=== PATIENT | male | born 1975 | race African-American/Black ===

== ENCOUNTER 2019-12-25 09:35 | Inpatient (IN) | payer OTHER ==
--- NOTE | 2019-12-25 09:47 | BHS.RME ---
Substance Use & Tx History - Substance Use History Alcohol Substance amount: one liter of Vodka Frequency of use: Daily Substance route: Oral Date of Last Use: 12/25/19 (First use age 13y. No seizures, Has had a blackout about 8 mos ago. 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) Cocaine- Powder Substance amount: one gram Frequency of use: Daily Substance route: Inhalation (ex: sniffing or snorting) Date of Last Use: 12/21/19 (First use age 15 y) Physical/Psych/Mental Status - Behavior General Behavior: Decreased activity Eye Contact: Decreased - Cooperativeness Cooperativeness: Cooperative - Thinking Thought Processes: Tight Thought content: Future oriented - Physical Health Problems Is patient presently having any pain?: No Does patient presently have any injuries (include location): No Does patient currently have a fever: No CIWA Nausea/Vomitin Muscle Tremors: 3 Anxiety: 3 Agitation: 1-Slight > Activity Paroxysmal Sweats: No Perspiration Orientation: 2-Disoriented Date<2 days Tacttile Disturbances: 0-None Auditory Disturbances: 0-None Visual Disturbances: 2-Mild Sensitivity Headache: 0-None Present CIWA-Ar Total Score: 14
[2019-12-25 10:27] VITALS: BMI 31.3
[2019-12-25] MEDS ORDERED: chlordiazePOXIDE HCL 25 MG CAPSULE PO PRN (10:50)
[2019-12-25] MEDS ORDERED: ACETAMINOPHEN 325 MG TABLET (FP) PO PRN ×2 (10:50)
[2019-12-25] MEDS ORDERED: MAGNESIUM HYDROX 2400MG/30ML ORAL SUSPENSION 30 ML CUP PO PRN (10:50)
[2019-12-25] MEDS ORDERED: BISMUTH SUBSALICYLATE 524 MG/30 ML UD PO PRN (10:50)
[2019-12-25] MEDS ORDERED: ONDANSETRON *ODT* 4 MG TABLET SL PRN (10:50)
[2019-12-25] MEDS ORDERED: NICOTINE POLACRILEX 2 MG GUM BUC PRN (10:50)
[2019-12-25] MEDS ORDERED: MAGNESIUM CITRATE 300 ML BOTTLE PO PRN (10:50)
[2019-12-25] MEDS ORDERED: MAG HYDROX/AL HYDROX/SIMETH 30 ML UNIT-DOSE CUP PO PRN (10:50)
[2019-12-25] MEDS ORDERED: IBUPROFEN 400 MG TABLET (FP) PO PRN (10:50)
[2019-12-25] MEDS ORDERED: MENTHOL/PHENOL 1 EACH UD MM PRN (10:50)
[2019-12-25] MEDS ORDERED: METHOCARBAMOL 500 MG TABLET PO PRN (10:50)
--- NOTE | 2019-12-25 10:50 | HP ---
CIWA Score Nausea/Vomitin Muscle Tremors: 3 Anxiety: 3 Agitation: 1-Slight > Activity Paroxysmal Sweats: No Perspiration Orientation: 2-Disoriented Date<2 days Tacttile Disturbances: 0-None Auditory Disturbances: 0-None Visual Disturbances: 2-Mild Sensitivity Headache: 0-None Present CIWA-Ar Total Score: 14 - Admission Criteria OASAS Guidelines: Admission for Medically Managed Detox: Requires at least one of the followin. CIWA greater than 12 2. Seizures within the past 24 hours 3. Delirium tremens within the past 24 hours 4. Hallucinations within the past 24 hours 5. Acute intervention needed for co occurring medical disorder 6. Acute intervention needed for co occurring psychiatric disorder 7. Severe withdrawal that cannot be handled at a lower level of care (continued vomiting, continued diarrhea, abnormal vital signs) requiring intravenous medication and/or fluids 8. Admitting History and Physical - Admission Chief Complaint: Mr. Bey presents to [facility] requesting detox from alcohol. History of Present Illness: Mr. Bey presents to [facility] requesting detox from alcohol. This is his first admission to [facility]. PMH/PSH/Psych/Legal: none SoC: lives with aunt Substance Use History Alcohol Substance amount: one liter of Vodka Frequency of use: Daily Substance route: Oral Date of Last Use: 12/25/19 (First use age 13y. No seizures, Has had a blackout about 8 mos ago. 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) Cocaine- Powder Substance amount: one gram Frequency of use: Daily Substance route: Inhalation (ex: sniffing or snorting) Date of Last Use: 12/21/19 (First use age 15 y) Cannabis: 2 days ago, uses 3 days per month, first use age 14y History Source: Patient Limitations to Obtaining History: No Limitations - Smoking History Smoking history: Current every day smoker Have you smoked in the past 12 months: Yes Aproximately how many cigarettes per day: 20 Admission [facility] Allergies/Adverse Reactions: Allergies Allergy/AdvReac Type Severity Reaction Status Date / Time No Known Allergies Allergy Verified 12/25/19 10:29 Exam Limitations: No Limitations - Ebola screening Have you traveled outside of the country in the last 21 days: No Have you been sick,other than usual withdrawal symptoms: No Do you have a fever: No - Review of Systems Constitutional: Unintentional Wgt. Loss (10 lb in 2 weeks) EENT: reports: No Symptoms Reported Respiratory: reports: No Symptoms reported Cardiac: reports: No Symptoms Reported GI: reports: Nausea : reports: No Symptoms Reported Musculoskeletal: reports: No Symptoms Reported Integumentary: reports: No Symptoms Reported Neuro: reports: No Symptoms reported Endocrine: reports: No Symptoms Reported Hematology: reports: No Symptoms Reported Psychiatric: reports: Anxious Patient History - Patient Medical History Hx Asthma: No Hx Chronic Obstructive Pulmonary Disease (COPD): No Hx Cardiac Disorders: No Hx Hypertension: No Hx Seizures: No Hx Diabetes: No Hx Gastrointestinal Disorders: No Hx Genitourinary Disorders: No Hx Sexually Transmitted Disorders: No Hx Renal Disease (ESRD): No Hx Depression: No Hx Suicide Attempt: No Hx Schizophrenia: No - Patient Surgical History Past Surgical History: No Hx Neurologic Surgery: No Hx Cataract Extraction: No Hx Cardiac Surgery: No Hx Lung Surgery: No Hx Breast Surgery: No Hx Breast Biopsy: No Hx Abdominal Surgery: No Hx Appendectomy: No Hx Cholecystectomy: No Hx Genitourinary Surgery: No Hx Section: No Hx Orthopedic Surgery: No Anesthesia Reaction: No - PPD History Previous Implant?: No Documented Results: Negative w/o proof - Smoking Cessation Smoking history: Current every day smoker Have you smoked in the past 12 months: Yes Aproximately how many cigarettes per day: 20 Hx Chewing Tobacco Use: No Initiated information on smoking cessation: Yes 'Breaking Loose' booklet given: 12/25/19 - Substances abused Alcohol Substance route: Oral Frequency: Daily Amount used: 1 pint vodka Age of first use: 14 Date of last use: 12/25/19 Marijuana/Hashish Substance route: Smoking Frequency: 1-3 times last 30 days Amount used: Free Age of first use: 14 Date of last use: 12/21/19 Cocaine Substance route: Inhalation Frequency: 3-6 times per week Amount used: $100 Age of first use: 20 Date of last use: 12/20/19 Admission Physical Exam BHS - Vital Signs Vital Signs: Vital Signs - 24 hr 12/25/19 10:21 Temperature 97.7 F Pulse Rate 68 Respiratory 18 Rate Blood Pressure 106/63 - Physical General Appearance: Yes: No Apparent Distress, Nourished, Appropriately Dressed HEENTM: Yes: EOMI, Hearing grossly Normal, Normocephalic, Normal Voice Respiratory: Yes: Lungs Clear, Normal Breath Sounds, No Accessory Muscle Use Neck: Yes: Within Normal Limits, Supple Breast: Yes: Breast Exam Deferred Cardiology: Yes: Regular Rhythm, Regular Rate Abdominal: Yes: Non Tender, Soft, Decreased BS, Protuberent Genitourinary: Yes: Other (deferred) Back: Yes: Normal Inspection Musculoskeletal: Yes: Gait Steady Neurological: Yes: Alert, Normal Response Integumentary: Yes: Normal Color, Dry, Warm - Diagnostic (1) Alcohol dependence with withdrawal, uncomplicated Current Visit: Yes Status: Acute (2) Cocaine abuse Current Visit: Yes Status: Acute (3) Nicotine dependence Current Visit: Yes Status: Acute Qualifiers: Nicotine product type: cigarettes Substance use status: uncomplicated Qualified Code(s): F17.210 - Nicotine dependence, cigarettes, uncomplicated Cleared for Admission S - Detox or Rehab [facility] Level of Care: Medically Managed Detox Regimen/Protocol: Librium Breathalyzer - Breathalyzer Breathalyzer: 0 Urine Drug Screen - Test Device Lot number: [id number] Expiration date: 02/01/21 - Control Is test valid?: Yes - Results Drug screen NEGATIVE: No Urine drug screen results: THC-Marijuana Inpatient Rehab Admission - Rehab Decision to Admit Inpatient rehab admission?: No
[2019-12-25] MEDS: NICOTINE 21 MG/24 HOURS TOPICAL PATCH TD SCH (11:19)
--- NOTE | 2019-12-25 12:15 | EKG ---
Test Reason : Blood Pressure : / mmHG Vent. Rate : 058 BPM Atrial Rate : 058 BPM P-R Int : 146 ms QRS Dur : 094 ms QT Int : 414 ms P-R-T Axes : 083 068 046 degrees QTc Int : 406 ms SINUS BRADYCARDIA OTHERWISE NORMAL ECG NO PREVIOUS ECGS AVAILABLE Confirmed by SHYAM DEVLIN MD ([id number]) on 12/25/2019 12:14:30 PM Referred By: Confirmed By:SHYAM DEVLIN MD
[2019-12-25 14:24] LABS: HEMOGLOBIN 14.1 GM/dL (11.7-16.9); MCH 30.8 pg (25.7-33.7); MCHC 34.3 g/dl (32.0-35.9); MEAN CELL VOLUME 89.7 fl (80-96); MEAN PLT VOLUME 7.8 fl (7.5-11.1); PLATELET COUNT 272 K/MM3 (134-434); RBC 4.57 M/mm3 (4.00-5.60); WHITE BLOOD COUNT 6.7 K/mm3 (4.0-10.0)
[2019-12-25 14:35] LABS: ALBUMIN 3.8 g/dl (3.4-5.0); BILIRUBIN,TOTAL 0.6 mg/dL (0.2-1); BLOOD UREA NITROGEN 12.9 mg/dL (7-18); TOT PROT 6.7 g/dl (6.4-8.2)
[2019-12-25] MEDS: hydrOXYzine PAMOATE 25 MG CAPSULE (FP) PO SCH ×3 (14:55→23:16)
[2019-12-25] MEDS: chlordiazePOXIDE HCL 25 MG CAPSULE PO SCH ×2 (17:44→23:16)
[2019-12-25] MEDS: THIAMINE HCL 100 MG TABLET (FP) PO SCH (23:16)
[2019-12-25] MEDS: MELATONIN 5 MG TABLETS PO SCH (23:16)
[2019-12-26] MEDS: hydrOXYzine PAMOATE 25 MG CAPSULE (FP) PO SCH ×5 (06:18→22:35)
[2019-12-26] MEDS: chlordiazePOXIDE HCL 25 MG CAPSULE PO SCH ×4 (06:18→22:32)
--- NOTE | 2019-12-26 10:15 | PN ---
S CIWA - CIWA Score Nausea/Vomitin-No Nausea/No Vomiting Muscle Tremors: None Anxiety: 0-No Anxiety, at Ease Agitation: 0-Normal Activity Paroxysmal Sweats: 1-Minimal Palms Moist Orientation: 0-Oriented Tacttile Disturbances: 0-None Auditory Disturbances: 2-Mild Harshness/Frighten Visual Disturbances: 2-Mild Sensitivity Headache: 0-None Present CIWA-Ar Total Score: 5 BHS Progress Note (SOAP) Subjective: Complains of slight sweats, noise sensitivity, light sensitivity, low back pain Objective: 12/26/19 10:13 see below Assessment: 12/26/19 10:12 Mr. Bey presents to [facility] requesting detox from alcohol. This is his first admission to [facility]. PMH/PSH/Psych/Legal: none SoC: lives with aunt Substance Use History Alcohol Substance amount: one liter of Vodka Frequency of use: Daily Substance route: Oral Date of Last Use: 12/25/19 (First use age 13y. No seizures, Has had a blackout about 8 mos ago. Admits to eye fish protector) Cocaine- Powder Substance amount: one gram Frequency of use: Daily Substance route: Inhalation (ex: sniffing or snorting) Date of Last Use: 12/21/19 (First use age 15 y) Cannabis: 2 days ago, uses 3 days per month, first use age 14y PE Gnl: WDWN, in no distress MS: nl mentation Motor: moves limbs well Coordination: nl Laboratory Tests 12/25/19 12/25/19 12/25/19 10:35 10:35 10:35 WBC 6.7 RBC 4.57 Hgb 14.1 Hct 41.0 MCV 89.7 MCH 30.8 MCHC 34.3 RDW 14.0 Plt Count 272 MPV 7.8 Sodium 142 Potassium 4.0 Chloride 109 H Carbon Dioxide 26 Anion Gap 7 L BUN 12.9 Creatinine 1.0 Est GFR (CKD-EPI)AfAm 105.62 Est GFR (CKD-EPI)NonAf 91.13 Random Glucose 93 Calcium 9.0 Total Bilirubin 0.6 AST 29 ALT 34 Alkaline Phosphatase 64 Total Protein 6.7 Albumin 3.8 Syphilis Serology Non-reactive Vital Signs - 24 hr 07/23/20 07/23/20 07/23/20 10:21 11:15 13:01 Temperature 97.7 F 97.7 F 98.1 F Pulse Rate 68 68 56 L Respiratory 18 18 20 Rate Blood Pressure 106/63 106/63 104/61 O2 Sat by Pulse 100 Oximetry (%) 12/25/19 12/25/19 12/26/19 16:33 21:30 05:37 Temperature 97.3 F L 96.8 F L 97.8 F Pulse Rate 69 54 L 72 Respiratory 18 18 18 Rate Blood Pressure 109/68 114/68 99/57 L O2 Sat by Pulse 100 100 Oximetry (%) 12/26/19 08:36 Temperature 98.1 F Pulse Rate 56 L Respiratory 18 Rate Blood Pressure 110/67 O2 Sat by Pulse 100 Oximetry (%) Home Medication List Medication Instructions Recorded Confirmed Type NK [No Known Home Medication] 12/25/19 12/25/19 History Active Medications Generic Name Dose Route Start Last Admin Trade Name Freq PRN Reason Stop Dose Admin Acetaminophen 650 mg 12/25/19 10:50 Tylenol - PO Q6H PRN PAIN LEVEL 4 - 6 Acetaminophen 650 mg 12/25/19 10:50 Tylenol - PO Q6H PRN FEVER Al Hydroxide/Mg Hydroxide 30 ml 12/25/19 10:50 Mylanta Oral Suspension - PO Q6H PRN DYSPEPSIA Bismuth Subsalicylate 524 mg 12/25/19 10:50 Pepto-Bismol - PO Q1H PRN DIARRHEA Chlordiazepoxide HCl 50 mg 12/25/19 17:00 12/26/19 06:18 Librium - PO 12/26/19 23:01 50 mg [id number] TYSON Administration Chlordiazepoxide HCl 25 mg 12/27/19 05:00 Librium - PO 12/27/19 23:01 [id number] TYSON Chlordiazepoxide HCl 25 mg 12/25/19 10:50 Librium - PO 12/27/19 23:59 Q4H PRN WITHDRAWAL(CONT SUBST) Chlordiazepoxide HCl 10 mg 12/28/19 05:00 Librium - PO 12/28/19 23:01 [id number] TYSON Chlordiazepoxide HCl 10 mg 12/29/19 05:00 Librium - PO 12/29/19 17:01 Q12H TYSON Chlordiazepoxide HCl 10 mg 12/28/19 00:00 Librium - PO 12/29/19 00:00 Q4H PRN WITHDRAWAL(CONT SUBST) Chlordiazepoxide HCl 10 mg 12/30/19 05:00 Librium - PO 12/30/19 05:01 ONCE@0500 ONE Eucalyptus/Menthol/Phenol/Sorbitol 1 each 12/25/19 10:50 Cepastat Lozenge - MM 12/31/19 10:50 Q4H PRN SORE THROAT Hydroxyzine Pamoate 25 mg 12/25/19 14:00 12/26/19 06:18 Vistaril - PO 12/31/19 10:50 25 mg Q4HWA TYSON Administration Ibuprofen 400 mg 12/25/19 10:50 Motrin - PO Q6H PRN PAIN LEVEL 1 - 3 Magnesium Citrate 300 ml 12/25/19 10:50 Citroma - PO Q48H PRN CONSTIPATION Magnesium Hydroxide 30 ml 12/25/19 10:50 Milk Of Magnesia - PO PRN PRN CONSTIPATION Melatonin 5 mg 12/25/19 22:00 12/25/19 23:16 Melatonin PO Not Given [facility] Methocarbamol 500 mg 12/25/19 10:50 Robaxin - PO 12/31/19 10:50 Q6H PRN MUSCLE SPASMS Nicotine 21 mg 12/25/19 11:00 12/25/19 11:19 Nicoderm Patch - TD Not Given DAILY [facility] Nicotine Polacrilex 2 mg 12/25/19 10:50 Nicorette Gum - BUC Q2H PRN NICOTINE REPLACEMENT RX Ondansetron HCl 4 mg 12/25/19 10:50 Zofran Odt - SL 12/31/19 10:51 Q8H PRN Nausea/Vomiting Multivit/Folic Acid/Iron 1 tab 12/26/19 10:00 Vitamins (Sjr) - PO DAILY [facility] Thiamine HCl 100 mg 12/25/19 22:00 12/25/19 23:16 Vitamin B1 - PO Not Given [facility] 12/26/19 10:14 1. Alcohol use disorder Plan: 1. Alcohol use disorder, Librium protocol, projected completion on 2. COVID pending 3. encouraged pt to ask for Robaxin for low back pain
[2019-12-26] MEDS: NICOTINE 21 MG/24 HOURS TOPICAL PATCH TD SCH (11:09)
[2019-12-26] MEDS: PRENATAL VITAMINS W/ FOLIC ACID TABLET (FP) PO SCH (11:10)
[2019-12-26] MEDS: THIAMINE HCL 100 MG TABLET (FP) PO SCH (22:34)
[2019-12-26] MEDS: MELATONIN 5 MG TABLETS PO SCH (22:35)
[2019-12-27] MEDS: chlordiazePOXIDE HCL 25 MG CAPSULE PO SCH ×2 (06:22→11:03)
[2019-12-27] MEDS: hydrOXYzine PAMOATE 25 MG CAPSULE (FP) PO SCH ×2 (06:22→11:03)
[2019-12-27 09:27] VITALS: BP 104/67; PULSE 74; TEMP 97.4
[2019-12-27] MEDS: NICOTINE 21 MG/24 HOURS TOPICAL PATCH TD SCH (11:03)
[2019-12-27] MEDS: PRENATAL VITAMINS W/ FOLIC ACID TABLET (FP) PO SCH (11:03)
--- NOTE | 2019-12-27 16:15 | DS ---
[facility] Detox Discharge Summary Admission Date: 12/25/19 Discharge Date: 12/27/19 - History Present History: Alcohol Dependence, Cocaine Dependence Additional Comments: Patient reported issue pertaining to personal belongings that he brought to hospital with him. Despite efforts by [employer]ING [employer] and and by Case Management Staff to address matter, Patient later determined that he did not wish to remain to complete detox regimen. Risks of leaving Detox Unit against medical advice and prior to completion of Detox Regimen were explained to Patient. Patient advised to go immediately to nearest ER should any intolerable withdrawal / detox symptoms develop at any time. Patient verbalized understanding of all information / recommendations presented to him prior to departure from detox unit. Patient was was quite agitated at time in which he was preparing to leave Detox Unit, thus making communication with him a that time difficult and limited. Pertinent Past History: Nicotine Dependence. - Physical Exam Results Vital Signs: Vital Signs Temperature 97.4 F L 12/27/19 08:35 Pulse Rate 74 12/27/19 08:35 Respiratory Rate 16 12/27/19 08:35 Blood Pressure 104/67 12/27/19 08:35 O2 Sat by Pulse Oximetry (%) 100 12/27/19 08:35 Pertinent Admission Physical Exam Findings: WITHDRAWAL SYMPTOMS. Laboratory Tests 12/25/19 12/25/19 12/25/19 10:35 10:35 10:35 WBC 6.7 RBC 4.57 Hgb 14.1 Hct 41.0 MCV 89.7 MCH 30.8 MCHC 34.3 RDW 14.0 Plt Count 272 MPV 7.8 Sodium 142 Potassium 4.0 Chloride 109 H Carbon Dioxide 26 Anion Gap 7 L BUN 12.9 Creatinine 1.0 Est GFR (CKD-EPI)AfAm 105.62 Est GFR (CKD-EPI)NonAf 91.13 Random Glucose 93 Calcium 9.0 Total Bilirubin 0.6 AST 29 ALT 34 Alkaline Phosphatase 64 Total Protein 6.7 Albumin 3.8 Syphilis Serology Non-reactive COVID-19 (AYO) 12/25/19 11:00 WBC RBC Hgb Hct MCV MCH MCHC RDW Plt Count MPV Sodium Potassium Chloride Carbon Dioxide Anion Gap BUN Creatinine Est GFR (CKD-EPI)AfAm Est GFR (CKD-EPI)NonAf Random Glucose Calcium Total Bilirubin AST ALT Alkaline Phosphatase Total Protein Albumin Syphilis Serology COVID-19 (AYO) Not detected Lab Results noted. - Medication Discharge Medications: Ambulatory Orders NK [No Known Home Medication] 12/25/19 - Diagnosis (1) Alcohol dependence with withdrawal, uncomplicated Status: Acute (2) Cocaine abuse Status: Acute (3) Nicotine dependence Status: Acute Qualifiers: Nicotine product type: cigarettes Substance use status: uncomplicated Qualified Code(s): F17.210 - Nicotine dependence, cigarettes, uncomplicated - AMA Did Patient Leave Against Medical Advice: Yes (Patient did not wish to remain to complete Detox Regimen.)
[2019-12-28] MEDS ORDERED: chlordiazePOXIDE HCL 10 MG CAPSULE PO PRN
[2019-12-28] MEDS ORDERED: chlordiazePOXIDE HCL 10 MG CAPSULE PO SCH (05:00)
[2019-12-29] MEDS ORDERED: chlordiazePOXIDE HCL 10 MG CAPSULE PO SCH (05:00)
[2019-12-30] MEDS ORDERED: chlordiazePOXIDE HCL 10 MG CAPSULE PO ONE (05:00)
== END 2019-12-27 15:20 | disposition left against medical advice (07) | DRG 770 ==
LOC: YASAS 09:35 → Y3N 10:41
PROVIDERS: ADMIT Allergy & Immunology; ATTEND Allergy & Immunology
PROC: HZ2ZZZZ Detoxification Services for Substance Abuse Treatment (ICD-10-PCS; principal; 2019-12-25)
DX: F10.230 Alcohol dependence with withdrawal, uncomplicated (principal); F14.20 Cocaine dependence, uncomplicated; F12.10 Cannabis abuse, uncomplicated; F17.210 Nicotine dependence, cigarettes, uncomplicated; M54.5 Low back pain
CPT/HCPCS: 36415; 80053; 85027; 86780; 93005; 93010; U0003

== ENCOUNTER 2022-07-19 11:54 | Inpatient (IN) | payer OTHER ==
[2022-07-19 12:56] VITALS: BMI 35.0
[2022-07-19] MEDS ORDERED: POLYETHYLENE GLYCOL (HEALTHYLAX) 3350 17 GM PACKET PO PRN (16:31)
[2022-07-19] MEDS ORDERED: guaiFENesin 200 MG/10 ML 10 ML UNIT-DOSE CUPS PO PRN (16:31)
[2022-07-19] MEDS ORDERED: MAG HYDROX/AL HYDROX/SIMETH 30 ML UNIT-DOSE CUP PO PRN (16:31)
[2022-07-19] MEDS ORDERED: IBUPROFEN 400 MG TABLET (FP) PO PRN (16:31)
[2022-07-19] MEDS ORDERED: P-EPHED 60MG/TRIPROLIDI 2.5MG TABLET PO PRN (16:31)
[2022-07-19] MEDS ORDERED: NICOTINE POLACRILEX 2 MG GUM BC PRN (16:31)
[2022-07-19] MEDS ORDERED: NICOTINE 10 MG CARTRIDGE (INHALER) IH PRN (16:31)
[2022-07-19] MEDS ORDERED: MAGNESIUM HYDROX 2400MG/30ML ORAL SUSPENSION 30 ML CUP PO PRN (16:31)
[2022-07-19] MEDS ORDERED: LOPERAMIDE HCL 2 MG CAPSULE PO PRN (16:31)
[2022-07-19] MEDS ORDERED: BENZOCAINE/MENTHOL (CHLORASEPTIC ) LOZENGE MM PRN (16:31)
[2022-07-19] MEDS ORDERED: ACETAMINOPHEN 325 MG TABLET (FP) PO PRN (16:31)
[2022-07-19] MEDS: MELATONIN 5 MG TABLETS PO SCH (22:02)
[2022-07-19] MEDS: THIAMINE HCL 100 MG TABLET (FP) PO SCH (22:02)
[2022-07-20] MEDS: PRENATAL VITAMINS W/ FOLIC ACID TABLET (FP) PO SCH (10:18)
[2022-07-20 12:15] LABS: HEMATOCRIT 40.8 % (35.4-49); HEMOGLOBIN 14.3 GM/dL (11.7-16.9); MCH 30.8 pg (25.7-33.7); MEAN CELL VOLUME 87.8 fl (80-96); MEAN PLT VOLUME 7.8 fl (7.5-11.1); PLATELET COUNT 248 10^3/uL (134-434); RBC 4.64 M/mm3 (4.00-5.60); RDW 14.1 % (11.9-15.9); WHITE BLOOD COUNT 5.2 K/mm3 (4.0-10.0)
[2022-07-20 12:37] LABS: CALCIUM 8.5 mg/dL (8.5-10.1)
[2022-07-20 12:38] LABS: ALBUMIN 3.4 g/dl (3.4-5.0); BLOOD UREA NITROGEN 15.6 mg/dL (7-18)
[2022-07-20 12:41] LABS: CREATININE 1.2 mg/dL (0.55-1.3)
[2022-07-20 12:43] LABS: BILIRUBIN,TOTAL 0.6 mg/dL (0.2-1); TOT PROT 6.1 g/dl (6.4-8.2)
[2022-07-20] MEDS: MELATONIN 5 MG TABLETS PO SCH (21:23)
[2022-07-20] MEDS: THIAMINE HCL 100 MG TABLET (FP) PO SCH (21:23)
[2022-07-21] MEDS: PRENATAL VITAMINS W/ FOLIC ACID TABLET (FP) PO SCH (10:42)
[2022-07-21 15:48] LABS: URINE APPEARANCE CLEAR; URINE BILIRUBIN NEGATIVE (NEGATIVE); URINE COLOR YELLOW; URINE GLUCOSE (UA) NEGATIVE (NEGATIVE); URINE KETONE NEGATIVE (NEGATIVE); URINE LEUK ESTERASE NEGATIVE (NEGATIVE); URINE NITRITE NEGATIVE (NEGATIVE); URINE PROTEIN NEGATIVE (NEGATIVE); URINE UROBILINOGEN 0.2 mg/dL (0.2-1.0)
[2022-07-21] MEDS: THIAMINE HCL 100 MG TABLET (FP) PO SCH (21:19)
[2022-07-21] MEDS: MELATONIN 5 MG TABLETS PO SCH (21:19)
[2022-07-21] MEDS: hydrOXYzine PAMOATE 25 MG CAPSULE (FP) PO PRN (21:20)
[2022-07-22] MEDS: PRENATAL VITAMINS W/ FOLIC ACID TABLET (FP) PO SCH (10:57)
[2022-07-22] MEDS: MELATONIN 5 MG TABLETS PO SCH (21:22)
[2022-07-22] MEDS: THIAMINE HCL 100 MG TABLET (FP) PO SCH (21:22)
[2022-07-22] MEDS: hydrOXYzine PAMOATE 25 MG CAPSULE (FP) PO PRN (21:22)
[2022-07-23] MEDS: PRENATAL VITAMINS W/ FOLIC ACID TABLET (FP) PO SCH (10:42)
[2022-07-23] MEDS: MELATONIN 5 MG TABLETS PO SCH (21:15)
[2022-07-23] MEDS: THIAMINE HCL 100 MG TABLET (FP) PO SCH (21:15)
[2022-07-23] MEDS: diphenhydrAMINE HCL 25 MG CAPSULE (FP) PO PRN (21:16)
[2022-07-24] MEDS: PRENATAL VITAMINS W/ FOLIC ACID TABLET (FP) PO SCH (10:19)
[2022-07-24] MEDS: MELATONIN 5 MG TABLETS PO SCH (21:23)
[2022-07-24] MEDS: THIAMINE HCL 100 MG TABLET (FP) PO SCH (21:23)
[2022-07-24] MEDS: diphenhydrAMINE HCL 25 MG CAPSULE (FP) PO PRN (21:23)
[2022-07-25] MEDS: PRENATAL VITAMINS W/ FOLIC ACID TABLET (FP) PO SCH (11:28)
[2022-07-25] MEDS: MELATONIN 5 MG TABLETS PO SCH (21:41)
[2022-07-25] MEDS: THIAMINE HCL 100 MG TABLET (FP) PO SCH (21:41)
[2022-07-25] MEDS: diphenhydrAMINE HCL 25 MG CAPSULE (FP) PO PRN (21:42)
[2022-07-26] MEDS: PRENATAL VITAMINS W/ FOLIC ACID TABLET (FP) PO SCH (10:01)
[2022-07-26] MEDS ORDERED: TUBERCULIN PPD 5 TU/0.1ML VIAL ID ONE (14:57)
[2022-07-26] MEDS: diphenhydrAMINE HCL 25 MG CAPSULE (FP) PO PRN (21:22)
[2022-07-26] MEDS: THIAMINE HCL 100 MG TABLET (FP) PO SCH (21:22)
[2022-07-26] MEDS: MELATONIN 5 MG TABLETS PO SCH (21:22)
[2022-07-27] MEDS: PRENATAL VITAMINS W/ FOLIC ACID TABLET (FP) PO SCH (11:05)
[2022-07-27] MEDS: diphenhydrAMINE HCL 25 MG CAPSULE (FP) PO PRN (21:18)
[2022-07-27] MEDS: THIAMINE HCL 100 MG TABLET (FP) PO SCH (21:18)
[2022-07-27] MEDS: MELATONIN 5 MG TABLETS PO SCH (21:18)
[2022-07-28] MEDS: hydrOXYzine PAMOATE 25 MG CAPSULE (FP) PO PRN (06:34)
[2022-07-28] MEDS: PRENATAL VITAMINS W/ FOLIC ACID TABLET (FP) PO SCH (10:11)
[2022-07-28] MEDS: THIAMINE HCL 100 MG TABLET (FP) PO SCH (21:32)
[2022-07-28] MEDS: MELATONIN 5 MG TABLETS PO SCH (21:32)
[2022-07-28] MEDS: diphenhydrAMINE HCL 25 MG CAPSULE (FP) PO PRN (21:32)
[2022-07-29] MEDS: PRENATAL VITAMINS W/ FOLIC ACID TABLET (FP) PO SCH (11:39)
[2022-07-29] MEDS: diphenhydrAMINE HCL 25 MG CAPSULE (FP) PO PRN (21:55)
[2022-07-29] MEDS: THIAMINE HCL 100 MG TABLET (FP) PO SCH (21:55)
[2022-07-29] MEDS: MELATONIN 5 MG TABLETS PO SCH (21:55)
[2022-07-30] MEDS: PRENATAL VITAMINS W/ FOLIC ACID TABLET (FP) PO SCH (11:24)
[2022-07-30] MEDS: THIAMINE HCL 100 MG TABLET (FP) PO SCH (21:19)
[2022-07-30] MEDS: diphenhydrAMINE HCL 25 MG CAPSULE (FP) PO PRN (21:19)
[2022-07-30] MEDS: MELATONIN 5 MG TABLETS PO SCH (21:20)
[2022-07-31] MEDS: PRENATAL VITAMINS W/ FOLIC ACID TABLET (FP) PO SCH (10:13)
[2022-07-31] MEDS: THIAMINE HCL 100 MG TABLET (FP) PO SCH (21:20)
[2022-07-31] MEDS: diphenhydrAMINE HCL 25 MG CAPSULE (FP) PO PRN (21:20)
[2022-07-31] MEDS: MELATONIN 5 MG TABLETS PO SCH (21:20)
[2022-08-01] MEDS: PRENATAL VITAMINS W/ FOLIC ACID TABLET (FP) PO SCH (11:18)
[2022-08-01] MEDS: THIAMINE HCL 100 MG TABLET (FP) PO SCH (21:42)
[2022-08-01] MEDS: MELATONIN 5 MG TABLETS PO SCH (21:42)
[2022-08-01] MEDS: diphenhydrAMINE HCL 25 MG CAPSULE (FP) PO PRN (21:42)
[2022-08-02] MEDS: PRENATAL VITAMINS W/ FOLIC ACID TABLET (FP) PO SCH (10:50)
[2022-08-02] MEDS: diphenhydrAMINE HCL 25 MG CAPSULE (FP) PO PRN (21:24)
[2022-08-02] MEDS: THIAMINE HCL 100 MG TABLET (FP) PO SCH (21:24)
[2022-08-02] MEDS: MELATONIN 5 MG TABLETS PO SCH (21:24)
[2022-08-03] MEDS: PRENATAL VITAMINS W/ FOLIC ACID TABLET (FP) PO SCH (09:33)
[2022-08-03] MEDS: MELATONIN 5 MG TABLETS PO SCH (21:22)
[2022-08-03] MEDS: THIAMINE HCL 100 MG TABLET (FP) PO SCH (21:22)
[2022-08-03] MEDS: diphenhydrAMINE HCL 25 MG CAPSULE (FP) PO PRN (21:22)
[2022-08-04] MEDS: PRENATAL VITAMINS W/ FOLIC ACID TABLET (FP) PO SCH (10:46)
[2022-08-04] MEDS: THIAMINE HCL 100 MG TABLET (FP) PO SCH (21:26)
[2022-08-04] MEDS: MELATONIN 5 MG TABLETS PO SCH (21:26)
[2022-08-04] MEDS: diphenhydrAMINE HCL 25 MG CAPSULE (FP) PO PRN (21:26)
[2022-08-05] MEDS: PRENATAL VITAMINS W/ FOLIC ACID TABLET (FP) PO SCH (10:29)
[2022-08-05] MEDS: THIAMINE HCL 100 MG TABLET (FP) PO SCH (21:30)
[2022-08-05] MEDS: MELATONIN 5 MG TABLETS PO SCH (21:30)
[2022-08-05] MEDS: diphenhydrAMINE HCL 25 MG CAPSULE (FP) PO PRN (21:30)
[2022-08-06] MEDS: PRENATAL VITAMINS W/ FOLIC ACID TABLET (FP) PO SCH (10:29)
[2022-08-06] MEDS: THIAMINE HCL 100 MG TABLET (FP) PO SCH (21:15)
[2022-08-06] MEDS: diphenhydrAMINE HCL 25 MG CAPSULE (FP) PO PRN (21:15)
[2022-08-06] MEDS: MELATONIN 5 MG TABLETS PO SCH (21:15)
[2022-08-07] MEDS: PRENATAL VITAMINS W/ FOLIC ACID TABLET (FP) PO SCH (10:55)
[2022-08-07] MEDS: THIAMINE HCL 100 MG TABLET (FP) PO SCH (21:46)
[2022-08-07] MEDS: MELATONIN 5 MG TABLETS PO SCH (21:46)
[2022-08-07] MEDS: diphenhydrAMINE HCL 25 MG CAPSULE (FP) PO PRN (21:46)
[2022-08-08] MEDS: PRENATAL VITAMINS W/ FOLIC ACID TABLET (FP) PO SCH (10:41)
[2022-08-08] MEDS: diphenhydrAMINE HCL 25 MG CAPSULE (FP) PO PRN (21:27)
[2022-08-08] MEDS: MELATONIN 5 MG TABLETS PO SCH (21:27)
[2022-08-08] MEDS: THIAMINE HCL 100 MG TABLET (FP) PO SCH (21:27)
[2022-08-09] MEDS: PRENATAL VITAMINS W/ FOLIC ACID TABLET (FP) PO SCH (09:48)
[2022-08-09] MEDS: hydrOXYzine PAMOATE 25 MG CAPSULE (FP) PO PRN (10:40)
[2022-08-09] MEDS: MELATONIN 5 MG TABLETS PO SCH (21:16)
[2022-08-09] MEDS: THIAMINE HCL 100 MG TABLET (FP) PO SCH (21:16)
[2022-08-09] MEDS: diphenhydrAMINE HCL 25 MG CAPSULE (FP) PO PRN (21:16)
[2022-08-10] MEDS: PRENATAL VITAMINS W/ FOLIC ACID TABLET (FP) PO SCH (10:16)
[2022-08-10] MEDS: diphenhydrAMINE HCL 25 MG CAPSULE (FP) PO PRN (21:23)
[2022-08-10] MEDS: THIAMINE HCL 100 MG TABLET (FP) PO SCH (21:23)
[2022-08-10] MEDS: MELATONIN 5 MG TABLETS PO SCH (21:23)
[2022-08-11] MEDS: PRENATAL VITAMINS W/ FOLIC ACID TABLET (FP) PO SCH (10:24)
[2022-08-11] MEDS: diphenhydrAMINE HCL 25 MG CAPSULE (FP) PO PRN (22:02)
[2022-08-11] MEDS: THIAMINE HCL 100 MG TABLET (FP) PO SCH (22:03)
[2022-08-11] MEDS: MELATONIN 5 MG TABLETS PO SCH (22:03)
[2022-08-12] MEDS: PRENATAL VITAMINS W/ FOLIC ACID TABLET (FP) PO SCH (10:44)
[2022-08-12] MEDS: MELATONIN 5 MG TABLETS PO SCH (21:48)
[2022-08-12] MEDS: THIAMINE HCL 100 MG TABLET (FP) PO SCH (21:48)
[2022-08-12] MEDS: diphenhydrAMINE HCL 25 MG CAPSULE (FP) PO PRN (21:51)
[2022-08-13] MEDS: PRENATAL VITAMINS W/ FOLIC ACID TABLET (FP) PO SCH (10:40)
[2022-08-13] MEDS: diphenhydrAMINE HCL 25 MG CAPSULE (FP) PO PRN (21:49)
[2022-08-13] MEDS: THIAMINE HCL 100 MG TABLET (FP) PO SCH (21:49)
[2022-08-13] MEDS: MELATONIN 5 MG TABLETS PO SCH (21:49)
[2022-08-14] MEDS: PRENATAL VITAMINS W/ FOLIC ACID TABLET (FP) PO SCH (10:19)
[2022-08-14] MEDS: THIAMINE HCL 100 MG TABLET (FP) PO SCH (21:17)
[2022-08-14] MEDS: diphenhydrAMINE HCL 25 MG CAPSULE (FP) PO PRN (21:17)
[2022-08-14] MEDS: MELATONIN 5 MG TABLETS PO SCH (21:17)
[2022-08-15 07:08] VITALS: BP 148/86; PULSE 75; RESP 17; TEMP 97.7
== END 2022-08-15 08:55 | disposition home or self-care (01) | DRG 772 ==
LOC: YASAS 11:54 → Y6N 17:18 → Y3W 19:47
PROVIDERS: ADMIT Allergy & Immunology; ATTEND Allergy & Immunology
PROC: HZ42ZZZ Group Counseling for Substance Abuse Treatment, Cognitive-Behavioral (ICD-10-PCS; principal; 2022-07-19)
DX: F10.20 Alcohol dependence, uncomplicated (principal); F14.20 Cocaine dependence, uncomplicated; F12.20 Cannabis dependence, uncomplicated; F17.210 Nicotine dependence, cigarettes, uncomplicated; F19.282 Other psychoactive substance dependence with psychoactive substance-induced sleep disorder; Z59.01 Sheltered homelessness
CPT/HCPCS: 36415; 80053; 81003; 85027; 86780; 87811; C9803-CS; U0003; U0005